=== PATIENT | female | born 1950 | race Caucasian/White ===

== ENCOUNTER 2017-02-28 07:14 | Emergency (ER) | payer OTHER ==
[~2017-02-28] VITALS: Ht 154.9 cm; Wt 66.0 kg
[2017-02-28 07:18] VITALS: Ht 154.9 cm; Wt 66.0 kg
[2017-02-28] MEDS ORDERED: HYD25 PO (07:59)
--- NOTE | 2017-02-28 08:30 | ERD ---
ER Documentation Chief Complaint Date/Time DATE: 02/28/17 TIME: 08:26 Chief Complaint BP @ HOME 150/98 , ARM AND LEGS NYMBNESS X 1 WEEK HPI 66-year-old female otherwise healthy, not formally diagnosed with hypertension comes emergency room elevated blood pressure readings at home. She states that they have been approximately in the 150s, approximately over 100. Her only complaint at this time is heaviness to her arms and her legs for the last week. She presents to the emergency department because her her son is a physician and he advised that she should be on medication. She has a primary care however they were not able to see her until next month. She denies any headache , chest pain, dizziness. She denies weakness, paresthesias, visual changes. ROS All systems reviewed and are negative except as per history of present illness. Medications Home Meds Active Scripts Hydrochlorothiazide* (Hydrochlorothiazide*) 25 Mg Tab, 25 MG PO DAILY, #30 TAB Prov:BRITANY SERRA PA-C 02/28/17 Allergies Allergies: Coded Allergies: Penicillins (Verified Allergy, 07/30/12) PMhx/Soc Hx Miscellaneous Medical Probl: Yes (hypertension) Hx Alcohol Use: No Hx Substance Use: No Hx Tobacco Use: No Smoking Status: Never smoker Physical Exam Vitals Vital Signs Date Time Temp Pulse Resp B/P Pulse Ox O2 Delivery O2 Flow Rate FiO2 02/28/17 07:18 98.0 82 18 140/76 98 Physical Exam General: Well-developed, well-nourished. The patient appears in no acute distress. HEENT: Head is normocephalic, atraumatic. No scleral icterus. Neck: Supple. Nontender. Lungs: Clear to auscultation. Normal air movement. Heart: Regular rate and rhythm. S1 and S2 are normal. No murmurs, gallops, or rubs. Abdomen: Soft, nontender, nondistended. Bowel sounds are normoactive. Extremities: No clubbing or cyanosis. Normal pulses. Moving extremities x 4. No weakness. Neuro: M/S: Alert and oriented Face: EOMI, CN II-XII grossly intact Motor: Normal strength throughout Sensation: Normal sensation throughout Speech: Normal Cerebel: Normal coordination Normal gait Normal finger to nose DTR: 2+ and symmetric upper/lower extremities Skin: Normal turgor. No rash or lesions. Procedures/MDM Medical decision making: A 66-year-old female presents with a history of multiple elevated blood pressure readings. Her blood pressure in the emergency department department is elevated, it is 140/76. She has no medical complaints aside from the sensation of feeling heavy. She does not have any cerebellar signs and her neurologic examination is intact. She does not report any weakness, paresthesias history is not concerning for CVA or TIA. She will be started on hydrochlorothiazide, and was asked to follow-up with her primary care doctor. Blood pressure readings are not concerning for hypertensive urgency or emergency, and she is asymptomatic. The case was reviewed and discussed with who agrees with the plan of care including labs, treatment, and advanced imaging as appropriate. Patient's blood pressure was elevated (>120/80) but appears stable without evidence of hypertension emergency or urgency. The patient was counseled about the risks of hypertension and urged to pursue outpatient monitoring and therapy within a week with their primary care physician. Departure Diagnosis: Primary Impression: Elevated blood pressure reading Condition: Good Patient Instructions: Hypertension, New (Begin Treatment) Additional Instructions: Llame al doctor FANY y katelynn lee ann EVA PARA DENTRO DE 1-2 GARDNER.Dgale a la secretaria que nosotros le instruimos hacer esta eva.Avise o llame si agrawal condicin se empeora antes de la eva. Regresa aqui si peor o no mejor. BRITANY SERRA PA-C Feb 28, 2017 08:30
== END 2017-02-28 08:19 | disposition home or self-care (01) ==
LOC: FTE 07:14
DX: I10 Essential (primary) hypertension (principal)
CPT/HCPCS: 99283